=== PATIENT | female | born 1955 | race African-American/Black ===

== ENCOUNTER 2017-08-27 11:54 | Inpatient (IN) | payer MEDICARE, MEDICAID ==
[~2017-08-27] VITALS: Ht 160 cm; Wt 59.0 kg
[~2017-08-27 11:54] MED LIST: BUSP15TA3 PO; GABA-531 PO; LISI10TA5 PO; PLAVIX PO; QUET200T PO; SERT100T PO; TRAM50TA3 PO
[2017-08-27] MEDS ORDERED: SODIUM CHLORIDE 0.9% 1,000 ML IV ONE (12:54)
[2017-08-27 14:08] LABS: HEMATOCRIT. 30.3 % (36.0-48.0); HEMOGLOBIN. 8.7 g/dL (12.0-16.0); MEAN CORPUSCULAR HEMOGLOBIN 19.8 pg (28.0-32.0); MEAN CORPUSCULAR VOLUME 68.6 fL (81.0-99.0); MEAN PLATELET VOLUME 8.6 fl (7.4-10.4); PLATELET 403 x1000/uL (130-400); RED BLOOD CELL COUNT 4.42 mill/uL (4.2-5.4); RED CELL DISTRIBUTION WIDTH 21.5 % (11.6-14.6)
[2017-08-27 14:19] LABS: D-DIMER 0.77 mg/L FEU (<0.50); PARTIAL THROMBOPLASTIN TIME 26.8 sec (23.4-31.0); PROTHROMBIN TIME 10.5 sec (9.4-11.6)
[2017-08-27 14:27] LABS: CARBON DIOXIDE 28 mEq/L (21-32); CHLORIDE 104 mEq/L (98-107); TROPONIN I < 0.02 ng/mL (0.00-0.04)
[2017-08-27 14:30] LABS: BG BASE EXCESS 1.5 mmol/L (-2.0-2.0); BG CARBOXYHEMOGLOBIN 3.5 % (0.5-1.5); BG DEOXYHEMOGLOBIN 20.6 % (0.0-5.0); BG HCO3 ACT 25.6 mmol/L (22.0-26.0); BG METHEMOGLOBIN 0.3 % (0.0-1.5); BG OXYGEN SATURATION 78.6 % (92.0-98.5); BG OXYHEMOGLOBIN 75.6 % (94.0-97.0); BG PCO2 38.6 mmHg (35.0-45.0); BG PO2 42.8 mmHg (75.0-100.0); BG SAMPLE SITE RIGHT RADIAL; BG TOTAL HEMOGLOBIN 9.6 g/dL (12.0-18.0); BG VENT MODE ROOM AIR
[2017-08-27 14:37] LABS: PLATELET ESTIMATE SLIGHTLY INCREASED
[2017-08-27] MEDS ORDERED: IPRATROPIUM/ALBUTEROL 0.5-3(2.5)MG/3ML NEB HHN ONE ×2 (14:45→16:30)
[2017-08-27 15:29] LABS: CLARITY URINE CLEAR (CLEAR); COLOR URINE YELLOW (YELLOW); KETONES URINE NEGATIVE (NEGATIVE); LEUKOCYTE ESTERASE URINE NEGATIVE (NEGATIVE); NITRITE URINE NEGATIVE (NEGATIVE); OCCULT BLOOD URINE NEGATIVE (NEGATIVE); PROTEIN URINE NEGATIVE (NEGATIVE)
[2017-08-27] MEDS ORDERED: CEFTRIAXONE 1 G PREMIX 50 ML IV ONE (16:30)
[2017-08-27] MEDS ORDERED: OSELTAMIVIR 75MG CAPSULE PO ONE (16:30)
[2017-08-27] MEDS ORDERED: METHYLPREDNISOLONE SOD SUCC 125 MG/2 ML VIAL IV ONE (16:30)
[2017-08-27] MEDS ORDERED: AZITHROMYCIN 500 MG in DEXT 5% WATER 250 ML IV SCH (16:30)
[2017-08-27] MEDS ORDERED: IPRATROPIUM/ALBUTEROL 0.5-3(2.5)MG/3ML NEB ONE (16:37)
[2017-08-27] MEDS ORDERED: GUAIFENESIN 200MG/10ML SUGAR FREE UDC PO PRN (18:45)
[2017-08-27] MEDS ORDERED: MAGNESIUM/ALUMINUM HYDROXIDE/SIMETHICONE 30ML UDC PO PRN (18:45)
[2017-08-27] MEDS ORDERED: CLONIDINE 0.1MG TABLET PO PRN (18:45)
[2017-08-27] MEDS ORDERED: ACETAMINOPHEN 325MG TABLET PO PRN (18:45)
[2017-08-27] MEDS ORDERED: ONDANSETRON HCL 4MG/2ML VIAL IV PRN (18:45)
[2017-08-27] MEDS ORDERED: IPRATROPIUM/ALBUTEROL 0.5-3(2.5)MG/3ML NEB INH PRN (18:45)
[2017-08-27] MEDS ORDERED: DIPHENHYDRAMINE 50MG/ML VIAL IV PRN (18:45)
[2017-08-27] MEDS ORDERED: IPRATROPIUM/ALBUTEROL 0.5-3(2.5)MG/3ML NEB HHN SCH (18:45)
[2017-08-27 19:41] LABS: FOLIC ACID (FOLATE) SERUM 4.2 ng/mL (>5.38)
[2017-08-27 22:30] VITALS: BP 131/71
[2017-08-27] MEDS: SODIUM CHLORIDE 0.9% INJ 3ML FLUSH IVF SCH (23:41)
[2017-08-27] MEDS: GABAPENTIN 300MG CAPSULE PO SCH (23:41)
[2017-08-27] MEDS: QUETIAPINE FUMARATE 100MG TABLET PO SCH (23:41)
[2017-08-28 00:39] LABS: TOTAL IRON BINDING CAPACITY 406 ug/dL (250-450)
[2017-08-28] MEDS: IPRATROPIUM/ALBUTEROL 0.5-3(2.5)MG/3ML NEB HHN SCH ×6 (00:39→20:11)
[2017-08-28] MEDS: BUSPIRONE HCL 5MG TABLET PO SCH ×3 (03:52→22:21)
[2017-08-28] MEDS: METHYLPREDNISOLONE SOD SUCC 125 MG/2 ML VIAL IV SCH ×2 (03:52→09:15)
[2017-08-28] MEDS: LEVOFLOXACIN 500MG PREMIX 100 ML IV SCH (03:53)
[2017-08-28 04:46] VITALS: BP 130/73
[2017-08-28] MEDS: SODIUM CHLORIDE 0.9% INJ 3ML FLUSH IVF SCH ×3 (06:40→22:21)
[2017-08-28] MEDS: GABAPENTIN 300MG CAPSULE PO SCH ×3 (06:40→22:20)
[2017-08-28] MEDS: OMEPRAZOLE 20MG CAPSULE EXTENDED RELEASE PO SCH ×2 (07:31→22:21)
[2017-08-28 08:00] VITALS: BP 138/77
[2017-08-28] MEDS: FOLIC ACID 1MG TABLET PO SCH (09:00)
[2017-08-28] MEDS: SERTRALINE HCL 100MG TABLET PO SCH (09:15)
[2017-08-28] MEDS: LISINOPRIL 10MG TABLET PO SCH (09:16)
[2017-08-28 11:42] VITALS: BP 155/79
[2017-08-28] MEDS ORDERED: IBUPROFEN 600MG TABLET PO PRN (11:45)
[2017-08-28] MEDS ORDERED: REGADENOSON 0.4 MG/5 ML IV ONE ×2 (12:00→13:26)
[2017-08-28 16:00] VITALS: BP 126/61
[2017-08-28] MEDS: METHYLPREDNISOLONE SOD SUCC 40 MG/ML VIAL IV SCH ×2 (16:52→22:21)
[2017-08-28 16:57] LABS: CREATINE KINASE 35 IU/L (26-192); CREATINE KINASE MB FRACTION 0.6 ng/mL (0.5-3.6); HDL CHOLESTEROL 63 mg/dL (40-59); T4 FREE 1.15 ng/dL (0.76-1.46)
[2017-08-28 17:01] LABS: LDL CHOLESTEROL 98 mg/dL (5-100)
[2017-08-28 18:28] LABS: *AMPHETAMINES SCREEN URINE NEGATIVE (NEGATIVE); *BARBITURATES SCREEN URINE NEGATIVE (NEGATIVE); *BENZODIAZEPINES SCREEN URINE NEGATIVE (NEGATIVE); *COCAINE SCREEN URINE NEGATIVE (NEGATIVE); CANNABINOID URINE SCREEN PRESUMTIVE POSITIVE (NEGATIVE); METHADONE URINE SCREEN NEGATIVE (NEGATIVE); OPIATES URINE SCREEN PRESUMTIVE POSITIVE (NEGATIVE); PHENCYCLIDINE URINE SCREEN NEGATIVE (NEGATIVE)
[2017-08-28] MEDS: BUDESONIDE 0.5MG/2ML NEB HHN SCH (20:11)
[2017-08-28] MEDS: QUETIAPINE FUMARATE 100MG TABLET PO SCH (22:21)
[2017-08-29] MEDS: IPRATROPIUM/ALBUTEROL 0.5-3(2.5)MG/3ML NEB HHN SCH ×4 (00:22→16:23)
[2017-08-29] MEDS: LEVOFLOXACIN 500MG PREMIX 100 ML IV SCH (01:37)
[2017-08-29 01:44] LABS: CREATINE KINASE MB FRACTION 0.7 ng/mL (0.5-3.6)
[2017-08-29 04:03] VITALS: BP 126/68
[2017-08-29] MEDS: BUDESONIDE 0.5MG/2ML NEB HHN SCH (08:30)
[2017-08-29 08:52] VITALS: BP 106/64
[2017-08-29] MEDS: OMEPRAZOLE 20MG CAPSULE EXTENDED RELEASE PO SCH (08:57)
[2017-08-29] MEDS: SERTRALINE HCL 100MG TABLET PO SCH (08:57)
[2017-08-29] MEDS: FOLIC ACID 1MG TABLET PO SCH (08:57)
[2017-08-29] MEDS: LISINOPRIL 10MG TABLET PO SCH (08:58)
[2017-08-29] MEDS: BUSPIRONE HCL 5MG TABLET PO SCH (08:58)
[2017-08-29] MEDS ORDERED: CLOPIDOGREL 75MG TABLET PO SCH (09:00)
[2017-08-29] MEDS ORDERED: ASPIRIN 81MG TABLET PO SCH (09:00)
[2017-08-29] MEDS ORDERED: ENOXAPARIN 40MG/0.4ML SYR SUBCUT SCH (09:00)
[2017-08-29 11:00] LABS: CREATINE KINASE MB FRACTION 0.8 ng/mL (0.5-3.6)
[2017-08-29 12:13] VITALS: BP 106/48
[2017-08-29] MEDS: SODIUM CHLORIDE 0.9% INJ 3ML FLUSH IVF SCH (14:00)
[2017-08-29] MEDS: GABAPENTIN 300MG CAPSULE PO SCH (14:00)
[2017-08-29 15:59] VITALS: BP 109/63
[2017-08-29] MEDS ORDERED: PREDNISONE 20MG TABLET PO SCH (17:50)
[2017-08-29 17:51] VITALS: BP 130/77
[2017-08-30] MEDS ORDERED: LEVOFLOXACIN 500MG PREMIX 100 ML IV SCH
== END 2017-08-29 19:12 | disposition home or self-care (01) | DRG 189 ==
LOC: ER 12:16 → 6WST 16:52 → EDBEDREQ 16:55 → ENRESERV 20:58
PROVIDERS: ADMIT Internal Medicine; ATTEND Internal Medicine
DX: J96.01 Acute respiratory failure with hypoxia (principal); J44.1 Chronic obstructive pulmonary disease with (acute) exacerbation; E53.8 Deficiency of other specified B group vitamins; F12.90 Cannabis use, unspecified, uncomplicated; D50.9 Iron deficiency anemia, unspecified; E78.00 Pure hypercholesterolemia, unspecified; F32.9 Major depressive disorder, single episode, unspecified; R07.89 Other chest pain; I10 Essential (primary) hypertension; F41.9 Anxiety disorder, unspecified; E78.5 Hyperlipidemia, unspecified; F17.210 Nicotine dependence, cigarettes, uncomplicated; Z82.49 Family history of ischemic heart disease and other diseases of the circulatory system; Z82.5 Family history of asthma and other chronic lower respiratory diseases; Z86.73 Personal history of transient ischemic attack (TIA), and cerebral infarction without residual deficits; Z90.710 Acquired absence of both cervix and uterus; Z98.84 Bariatric surgery status; Z79.899 Other long term (current) drug therapy
CPT/HCPCS: 36415; 36600; 71045; 78452; 80053; 80061; 80305; 81001; 82375; 82550; 82553; 82607; 82746; 82805; 83036; 83540; 83550; 83605; 83880; 84439; 84443; 84484; 85025; 85379; 85610; 85730; 87040; 87086; 87804; 93005; 93017; 93306; 94640; 94664; 96361; 96365; 96367; 96375; 99285; A9500; J0456; J0696; J1650; J1956; J2785; J2920; J2930; J7030; J7040; J7060; J7512; J7620; J7626

== ENCOUNTER → 2017-09-16 | Outpatient (CLI) | payer MEDICARE, MEDICAID ==
[~2017-09-16] MED LIST changes: +BACL-141 PO; +CLOP75TA33 PO; +FURO40TA5 PO; +OMEP40CA34 PO
== END | disposition home or self-care (01) ==
LOC: RAD 08:19
PROVIDERS: ATTEND Internal Medicine Pulmonary Disease
DX: J84.10 Pulmonary fibrosis, unspecified (principal)
CPT/HCPCS: 78800; A9556; C1893

== ENCOUNTER → 2017-10-24 | Day surgery (SDC) | payer MEDICARE, OTHER ==
[~2017-10-24] MED LIST changes: +FENTANYL CITRATE/PF 50MCG/ML 2ML VIAL ONE; -GABA-531 PO; +LIDOCAINE HCL 1% 20ML VIAL (Pyxis) INJ ONE; -LISI10TA5 PO; +SODIUM BICARBONATE 4% (2.4MEQ) 5ML VIAL IV ONE; -TRAM50TA3 PO
== END | disposition home or self-care (01) ==
LOC: RAD 09:52
DX: C78.02 Secondary malignant neoplasm of left lung (principal); C78.01 Secondary malignant neoplasm of right lung; I48.91 Unspecified atrial fibrillation
CPT/HCPCS: 77012; 82962; J3010; J3490